=== PATIENT | female | born 1995 | race Caucasian/White ===

== ENCOUNTER 2019-07-14 05:14 | Day surgery (SDC) | payer OTHER, SELFPAY ==
--- NOTE | 2019-06-23 05:18 | HP_ITS ---
Intake Vital Signs 06/23/19 Height 5 ft 6 in 06/23/19 Weight: 154 lb 06/23/19 Body Mass Index (BMI) 24.8 06/23/19 Blood Pressure 120/74 06/23/19 Blood Pressure Location Rt brachial 06/23/19 Respiratory Rate 20 H 06/23/19 Pulse Rate 64 06/23/19 Pulse Source Monitor 06/23/19 Temperature 97.8 F 06/23/19 Pulse Ox 97 06/23/19 Oxygen Delivery Method room air Intake Visit Reasons: RUQ PAIN/Diarrhea Nozzle Operator Required: No Is patient in pain?: No Allergies Sulfa (Sulfonamide Antibiotics) Allergy (Intermediate, Verified 06/23/19 15:28) Hives Medications albuterol sulfate HFA 90 mcg/actuation aerosol inhaler 2 puff INHALATION Q6H 06/23/19 [History Confirmed 06/23/19] aripiprazole 5 mg tablet 5 mg PO DAILY 06/23/19 [History Confirmed 06/23/19] PFS Medical History (Updated 06/23/19 @ 17:14 by Saulo Olvera MD) Cholecystitis without calculus (Chronic) Asthma (Acute) Depression with anxiety (Acute) GERD (gastroesophageal reflux disease) (Acute) Nausea & vomiting (Acute) RUQ pain (Acute) Surgical History (Updated 06/23/19 @ 15:25 by Stephanie Harrison) History of tonsillectomy and adenoidectomy (Acute) Family History (Updated 06/23/19 @ 15:25 by Stephanie Harrison) Mother Asthma Arthritis High cholesterol Father Heart disease Social History (Updated 06/23/19 @ 17:18 by Saulo Olvera MD) Smoking Status: Current every day smoker alcohol intake: current alcohol intake frequency: a few times a month substance use type: other details: edible weed-THC butter HPI HPI HPI: HAMLET SHINE, is a 23 F who presents to the office today for HPI HPI Surgical H&P: Yes HPI: HAMLET SHINE, is a 23 F who presents to the office today for surgical consultation regarding right upper quadrant pain. The patient was referred by Senthil Salas CNP and a written compromise surgical consult recommendations were returned to him. Patient states that 4 years ago she had onset of right upper quadrant pain like a bandlike pain in the right subcostal region. This would typically occur after eating greasy foods or high fat foods like pizza or ice cream. That was ongoing for 2 years. She then pursued some investigation. This included at [facility] on July 11, 2017 the gallbladder ultrasound which was normal. Then on July 26, 2017 she had a hepatobiliary scan. This demonstrated diminished ejection fraction of 31%. However most importantly she had significant amount of pain elicited during the procedure to the point where she had to keep be reminded to hold still because of the discomfort. She states then she moved to [place] and just recently has moved back. She had altered her diet but now is having recurrent problems. She goes on to say that she has a separate issue of asthma. She claims when she had a dental procedure she had exacerbation of her asthma. She states that she was prescribed a steroid inhaler but because of the $3-$400 hly-hi-hsidep expense to [employer] she could not afford it. She is not utilizing it. She is a long-term cigarette smoker. Reports of approximately half a pack per day but she states currently less. She is having ongoing problems with postprandial right upper quadrant pain particularly higher fat foods. She has a family history with mother and sister and father all having had cholecystectomies for what sounds like a calculus disease. She is accompanied by her mother today who also assist with some of the history ROS General General: Yes weight change and fatigue; no appetite, colon cancer, breast cancer or weakness HEENT HEENT: No difficulty swallowing, eye injury, eye surgery, swollen glands or hoarseness Endo Endocrine: No thyroid disease, diabetes mellitus, thyroid cancer, Hair loss, heat intolerance or cold intolerance Skin Skin: No rash or changing moles Breast Breast: No left breast lump, right breast lump, nipple discharge, breast pain, abnormal mammogram, abnormal US or breast enlargement Musc Musculoskeletal: No back problems, arthritis, rheumatoid arthritis, gout or joint pain Cardio Cardiovascular: No murmur, pacemaker, heart disease, atrial fibrillation, high blood pressure, heart attack, heart stent, palpitations, shortness of breat with exertion or chest pain Psych Psychiatric: Yes depression and anxiety; no hearing voices Resp Respiratory: No shortness of breath, No sleep apnea, No cough, No COPD, Yes asthma, No emphysema, No wheezing Gastro Gastrointestinal: Yes abdominal pain, Yes nausea or vomiting, No diarrhea, No constipation, No blood in stool, Yes acid reflux, No hemorrhoids, No ulcers, Yes gallbladder problem, No black,tarry stools Desean Hematologic: No blood thinners, No blood disorders, No bleeding, Yes anemia, No blood clots Neuro Neurologic: No system reviewed and no additional complaints, except as docu, No as per HPI, No abnormal walking, No abnormal hearing, No abnormal movements, No abnormal speech, No behavioral changes, No burning sensations, No confusion, No seizure-like activity, No unsteadiness, No dizziness, No localized weakness, No frequent falls, No headache(s), No lack of coordination, No loss of vision, No memory loss, No numbness, No other visual disturbances, No radiating pain, No restless legs, No sensory deficit, No fainting, No tingling, No tremor(s), No weakness, No other Exam Const General: cooperative, comfortable, no acute distress Nutritional Appearance: average body habitus Orientation: alert, awake, oriented x3 HENMT Head: normal to inspection Chest Breast Palpation: No nipple discharge Resp Effort & Inspection: normal respiratory effort Auscultation: clear to auscultation bilaterally Cardio Rate: regular rate Rhythm: regular rhythm Heart Sounds: no murmurs GI Palpation: soft, no hepatosplenomegaly Auscultation: normal bowel sounds Neuro Cognition: normal cognition Extrem General: no calf tenderness bilaterally Psych Affect: anxious affect Assessment & Plan Problems 1. Cholecystitis without calculus K81.9 Plan 23-year-old female with symptoms and findings seemingly consistent with biliary dyskinesia, acalculous cholecystitis. Her symptoms postprandial are very good for high fat foods. She did not tolerate the hepatobiliary scan well with stimulated right upper quadrant pain. I believe that she is a reasonable candidate for laparoscopic cholecystectomy with selective cholangiography and in detail described the technique, benefits, risks, alternatives. It is of concern that the patient describes a history of nighttime anxiety induced asthma attacks. As noted she is to be on a steroid inhaler but currently that is cost prohibitive. We will try to identify the precise recommended medication and see if there is any way we can assist with achieving that medication preoperatively. The patient is a long-term cigarette smoker. We have encouraged her to cease. She has agreed to strongly attempting to stop tobacco ideally 3 weeks prior to surgery. If were not able to get her previously prescribed inhaler then we have provided instructions for her to use the Ventolin 3 times a day for 3 days preoperatively. We have extensively discussed the technique, benefits, risks, alternatives. No guarantees of symptom resolution of been provided. She has had an opportunity to ask and have questions answered. I have made my please to try to maximize her pulmonary treatment preoperatively and she concurs. We will schedule and proceed as noted. I very much appreciate the kind opportunity of assisting with her surgical care. CC: Senthil Salas, SUPERVISOR STERILE [employer]ESSING Saulo Olvera M.D., F.A.C.S. Coding Level of Care Code 32224 Diagnoses Cholecystitis without calculus K81.9 06/23/19 1718 <Electronically signed by Saulo clemons MD> Date _ Saulo Olvera MD I have re-examined the patient. There are no clinical changes since date of exam.
[2019-06-23 15:27] VITALS: BMI 24.8
--- NOTE | 2019-07-14 05:28 | EKG12_ITS ---
Test Reason : PRE OP Blood Pressure : / mmHG Vent. Rate : 071 BPM Atrial Rate : 071 BPM P-R Int : 132 ms QRS Dur : 108 ms QT Int : 400 ms P-R-T Axes : 043 055 043 degrees QTc Int : 434 ms Normal sinus rhythm Normal ECG No previous ECGs available Confirmed by NANCY JAMES, JOS ([id number]), industrial editor AJ HALE ([id number]) on 07/17/2019 11:44:21 AM Referred By: Saulo Olvera Confirmed By:JOS CRUZ MD
[2019-07-14 05:40] LABS: Internal QC Validated? YES +Cl - CLEAR BKGD; Pregnancy, Urine Negative Negative
[2019-07-14 05:43] VITALS: BP 103/56; PULSE 66; RESP 15; TEMP 36.8; O2SAT 100; BMI 25.1
[2019-07-14] MEDS: Lactated Ringers 1,000 ML 100 ML IV ×2 (05:55→08:57)
[2019-07-14] MEDS: Cefazolin 2 GM in 0.9% Normal Saline 100 ML IV (07:15)
--- NOTE | 2019-07-14 07:15 | RAD_ITS ---
STUDY: INTRAOPERATIVE CHOLANGIOGRAM. REASON FOR EXAM: Female, 23 years old. Laparoscopic cholecystectomy. FLUOROSCOPY TIME (if supplied): ( 10.7 seconds ) minutes/seconds TECHNIQUE: An intraoperative cholangiogram was performed by the surgeon. Imaging was submitted. COMPARISON: None. FINDINGS: The intra and extrahepatic biliary ducts are unremarkable. No intraluminal filling defect is seen. There is free flow of contrast into the duodenum. RAD/Cholangiogram/ O R,Initial IMPRESSION: Unremarkable intraoperative cholangiogram. Electronically Signed: Raphael Dsouza, at 13:00 EDT , Service support ,
--- NOTE | 2019-07-14 07:15 | GALL_PTH ---
PATIENT: HAMLET SHINE LOC: [facility] – [place], [place] U#:[id number] AGE/SX: ROOM: RE07/14/[address]: Dr. Saulo Olvera MD : [id number] BED: DIS: 07/14/2019 SPEC #: [id number] RECD: 07/14/19 11:31 STATUS: SUMMER DELLA #: [id number] DION: 07/14/19 07:[address]: Saulo Olvera DEPT: SURGICAL PATHOLOGY RECD BY: Chelsea Hicks ENTERED: 07/14/19 12:01 SP TYPE: VIDAL AMBRIZ DR: Yuiner Salas, ACCESS REP-C Tissues: Gallbladder, NOS Procedures: Surgery Specimen Level III HEADER OPERATION: Laparoscopic cholecystectomy with IOC PRE-OP DIAGNOSIS: Cholecystitis without calculus TISSUE SUBMITTED: Gallbladder MICROSCOPIC DIAGNOSIS Gallbladder, cholecystectomy: Mild chronic cholecystitis. No stones are identified in the container or in the gallbladder. CHRISTA:frantz 07/15/19 MICROSCOPIC DESCRIPTION Slides are reviewed. GROSS DESCRIPTION Received is one container labeled with the patient's name and designated gallbladder. The specimen consists of a gallbladder measuring 6 cm in length and 3.5 cm in diameter. The external surface is pink-zelaya, smooth and glistening for the most part. Focally it is granular, hemorrhagic and contains cautery artifact. The gallbladder contains green-yellow mucoid bile. No stones are identified in the container or in the gallbladder. The mucosa is bile-stained and without any mass lesions. The gallbladder wall measures up to 0.2 cm in thickness. Nursery Technician sections from the gallbladder and the cystic duct are submitted in one cassette. / CHRISTA:frantz 07/14/19 TC:3 CPT: 62598
--- NOTE | 2019-07-14 07:18 | PCM.DC.GS ---
Discharge Diet: Light diet - advance as tolerated - if you have questions about your diet instructions, please talk to you doctor. Discharge Activity: May Not Drive - for 3-5 days or while taking narcotic pain medicine. May shower in (days): 1 Lifting Restrictions: 10 pounds Call your doctor if your incision/area has: Continuous Slow Oozing, Sudden Increased Bleeding, Increased Pain/ Swelling, Increased Redness, Foul Smelling Discharge Call your doctor if you observe: Fever of 101 or Higher Suture Line Care: Avoid Pulling/Pushing, Avoid Pinching/Bending Additional Dressing/Incision Instructions:: Change or remove dressing in 4 days. Leave steri-strips in place for 1 week. Allergies/Adverse Reactions: Allergies Sulfa (Sulfonamide Antibiotics) Allergy (Intermediate, Verified 07/14/19 05:42) Hives Medications to take at Discharge albuterol sulfate HFA 90 mcg/actuation aerosol inhaler 2 puff INHALATION Q6H 06/23/19 aripiprazole 5 mg tablet 5 mg PO DAILY 06/23/19 Primary Care Physician: Yunier Salas, [employer] [Primary Care Provider] - Test Results: Test results from this visit will be discussed in further detail at your follow-up appointment, if applicable. Please Follow Up With: Saulo Olvera MD - [phone] When: Call to make an appointment to be seen in about 10 days.
--- NOTE | 2019-07-14 08:20 | OP.PCM_ITS ---
Problem List (1) Cholecystitis without calculus Status: Chronic Report of Operation Date of Procedure: 07/14/19 Pre-Operative Diagnosis: Acalculus cholecystitis Post-Operative Diagnosis: Same Surgery/Procedure Performed:: Laparoscopic cholecystectomy with cholangiograms Description of Surgical Findings:: Timeout and informed consent was obtained. 23-year-old female taken out from placement table underwent general endotracheal intubation anesthesia. Ancef 2 g given intravenously preoperatively. The abdomen sterilely prepped and draped. 0.5% Marcaine was used as local anesthetic. Throughout the procedure total 30 cc was used. Skin sites were pre-anesthetized. A vertical infraumbilical incision was created holding sutures of 0 Vicryl placed varies needle inserted saline drop test performed. The abdomen was insufflated with CO2 to pressure of 10 minutes mercury pressure. [place] trocar inserted. Hemianopsia inserted. No concern trocar injuries. 5 mm ports were placed in the epigastric right upper quadrant right lateral upper quadrant. The gallbladder was distracted there were filmy adhesions of omentum these were bluntly dissected free and hemostasis obtained with hemoclips. The infundibular area carefully dissected free until the critical view was achieved. The cystic duct cystic artery clearly identified. The cystic artery was clipped twice proximally prior to transecting it. Hem-o-zelda clip was placed in the cystic duct incision in the cystic duct and through a 14-gauge Angiocath cholangiogram catheter was inserted fluoroscopically control claims grams demonstrated absolutely wide-open flow through the common bile duct into the small bowel. No evidence of luminal filling defects. The cholangiogram catheter was removed to Hem-o-zelda clips were placed on the cystic duct stump prior to transecting it. Further peritoneum of the gallbladder was secured with hemo-lock clip. The gallbladder was dissected free from the liver bed using electrocautery. Complete hemostasis was intact. The gallbladder was placed in a retrieval bag. It was exited at the umbilicus. The subhepatic area was again inspected and noted to be nicely hemostatic excess f luid and air was aspirated free. The abdomen was allowed to deflate the CO2. The fascia at the umbilicus approximate interrupted 0 Vicryl [id number] suture. Skin edges approximate interrupted 4 Monocryl subdermal stitches. Steri-Strips and Telfa and OpSite dressings applied. Sponge and instrument and needle counts were reported to the surgeon be correct. Specimen gallbladder. Drains none. Blood loss minimal. Saulo Olvera M.D., F.A.C.S. Type of Anesthesia:: General Anesthesiologist: Ly Garcia
[2019-07-14] MEDS: Bupivacaine Mpf 0.5% 30 ML VIAL (08:26)
[2019-07-14 08:38] VITALS: BP 103/56; BP 98/55; PULSE 86; RESP 20; TEMP 36.8; O2SAT 100
[2019-07-14 08:45] VITALS: BP 103/56; BP 99/57; PULSE 76; RESP 18; O2SAT 100
[2019-07-14 09:00] VITALS: BP 103/56; BP 115/70; PULSE 89; RESP 18; O2SAT 100
[2019-07-14 09:13] VITALS: BP 103/56; BP 109/58; PULSE 63; RESP 18; TEMP 36.4; O2SAT 98
[2019-07-14 11:15] VITALS: BP 102/60; BP 103/56; PULSE 67; RESP 18; TEMP 36.5; O2SAT 98
== END 2019-07-14 11:21 | disposition home or self-care (01) ==
LOC: SDC 05:17 → AC 05:22
PROVIDERS: Anesthesiology; Family Provider Nurse Practitioner Family; PCP Nurse Practitioner Family; Referring Provider Surgery; Visit Provider Surgery
PROC: (CPT 47610; principal; 2019-07-14 06:55)
DX: K81.1 Chronic cholecystitis (principal); K66.0 Peritoneal adhesions (postprocedural) (postinfection); F32.9 Major depressive disorder, single episode, unspecified; F41.9 Anxiety disorder, unspecified; J45.901 Unspecified asthma with (acute) exacerbation; F12.90 Cannabis use, unspecified, uncomplicated; F17.210 Nicotine dependence, cigarettes, uncomplicated; Z83.79 Family history of other diseases of the digestive system
CPT/HCPCS: 47563; 74300; 76000; 81025; 88304; 93005; J7120; J2405